=== PATIENT | female | born 1935 | race Caucasian/White ===

== ENCOUNTER → 2020-08-27 | Outpatient (CLI) | payer MEDICARE, OTHER ==
--- NOTE | 2020-08-27 15:32 | US ---
EXAM DESCRIPTION: Diagnostic Mammo,Bilateral (accession [id number]), Breast,Left (accession [id number]): Ultrasound CLINICAL HISTORY: 85 yearsFemaleLEFT BREAST LUMP . Lump located near the left axilla. No prior history of breast cancer. Mother with breast cancer at age 75. Menarche age 12. Childbirth age 22. Menopause age 52. No HRT. Lifetime risk of developing breast cancer (Tyrer-Cuzick model)(%): Not calculated COMPARISON: Baseline study at this facility. TECHNIQUE: Bilateral LM, CC, and MLO projection full-field images, digital tomosynthesis technique. Bilateral 2-D digital full-field images: LM, CC, and MLO projections. CAD available for 2-D images.. Transcutaneous scanning of the region of interest left breast utilizing bautista-scale and Doppler modes. Scanning performed by the finishing frame runner and Dr. Cha. Unable to visualize right pectoral muscle in the MLO projection, due to physical status of right shoulder. FINDINGS: The breast parenchymal density pattern is: Scattered areas of fibroglandular density. No skin thickening or nipple retraction ill-defined mass with spiculated margins in the lateral posterior left breast approximately 11 cm from the nipple at the 3:00 position near the pectoral muscle. This correlates with triangular skin marker were masses palpable. Spiculations extend almost to the lateral skin, and no mass is denser than the surrounding fibroglandular tissues. Mass measures approximately 1.8 x 1.3 cm in the sagittal plane and 1.8 cm transverse axis. 2 small linear calcifications anterior to the mass. Oval and round shape nodules most likely lymph nodes less than 1 cm diameter are seen in the nearby axilla. Bilateral solitary calcifications. Skin calcifications. Skin mole markers bilaterally. No focal, stellate mass or density, focal asymmetry , and no suspicious microcalcifications right breast. Ultrasound: Scanning at the 3:00 segment of the left breast 10 cm from the nipple. Hypoechoic mass predominantly with ill-defined borders and spiculations and partial halo with echogenic tissue. Predominantly posterior acoustic shadowing. Parallel orientation. Trace vascular by color Doppler. Dimensions are approximately 2.4 x 2.2 cm. No cyst, no fluid collection, no large calcifications. IMPRESSION: BI-RADS CATEGORY 4: SUSPICIOUS. SUB-CATEGORY 4C - HIGH SUSPICION FOR MALIGNANCY. RECOMMENDATION: Surgical consultation and tissue diagnosis should be considered. The FINDINGS and follow-up plan were reviewed in person with the patient following the examination. Written communication explaining the results and follow-up will be mailed to the patient and referring care provider. CRITICAL COMMUNICATION: The critical value was communicated directly by Dr. Cha via phone call, with Dr. Gregg Goode, at approximately 1440 hours, on August 27, 2020. Electronically signed by: Gregg Cha MD 08/27/2020 3:30 PM CDT
== END ==
LOC: US 13:08
PROVIDERS: ATTEND Family Medicine
DX: N63.32 Unspecified lump in axillary tail of the left breast (principal); Z80.3 Family history of malignant neoplasm of breast

== ENCOUNTER 2020-11-14 05:10 | Day surgery (SDC) | payer MEDICARE, OTHER ==
--- NOTE | 2020-11-05 11:02 | RAD ---
EXAM DESCRIPTION: Chest,2 Views CLINICAL HISTORY: 85 years Female, preop COMPARISON: None. FINDINGS: 2 views/radiographs Heart size and pulmonary vessels are within normal limits. There is no pneumothorax or pleural effusion. The lungs are clear bilaterally. The soft tissues are unremarkable. No acute osseous findings. IMPRESSION: No acute cardiopulmonary abnormality. Electronically signed by: Yuri Linton MD 11/05/2020 11:01 AM [facility]
[2020-11-14] MEDS ORDERED: LACTATED RINGERS 1,000 ML ONE (06:42)
[2020-11-14] MEDS ORDERED: LIDOCAINE 1% 10 ML VIAL INJ ONE (07:00)
[2020-11-14] MEDS ORDERED: DEXAMETHASONE INJ 10 MG/ML VIAL ONE (07:00)
[2020-11-14] MEDS ORDERED: diphenhydrAMINE HCL 50 MG/ML VIAL ONE (07:00)
[2020-11-14] MEDS ORDERED: ceFAZolin SODIUM 1 GM VIAL ONE (07:00)
[2020-11-14] MEDS ORDERED: PROPOFOL 200 MG/20 ML VIAL IV ONE (07:00)
[2020-11-14] MEDS ORDERED: LACTATED RINGERS 1,000 ML IVS ONE (08:45)
[2020-11-14] MEDS ORDERED: fentaNYL CITRATE INJ 50 MCG/ML 2 ML AMP ONE (09:57)
[2020-11-14] MEDS ORDERED: FAMOTIDINE INJ 10 MG/ML VIAL IV ONE (09:58)
[2020-11-14] MEDS ORDERED: BUPIVACAINE 0.25% W/EPI 50 ML VIAL INJ ONE (10:01)
[2020-11-14] MEDS ORDERED: LACTATED RINGERS 400 ML IVS ONE (11:23)
[2020-11-14 12:55] VITALS: BP 176/84; TEMP 97.4; O2SAT 96
--- NOTE | 2020-11-14 13:15 | OP ---
DATE OF PROCEDURE: 11/14/20 PREOPERATIVE DIAGNOSIS: 1. Left breast cancer. POSTOPERATIVE DIAGNOSIS: 1. Left breast cancer. PROCEDURE: 1. Left breast wide local excision with sentinel node biopsy. SURGEON: Errol Montague MD. ANESTHESIA: General. FINDINGS: The mass was probably about 3 cm with another mass next to it, about 1.5 cm. It was non-fixed, but going down to the muscle, so the deep margin will be negative as we took if off the muscle with no evidence of direct invasion. A single node with 21,000 count was identified in the axilla. No other axilla were seen with GPS, nor palpated. There was some trace up in the higher level node underneath the pectoralis muscle, which we did not excise during the sentinel node process with no evidence that it was necessarily positive. COMPLICATIONS: None. ESTIMATED BLOOD LOSS: Minimal. PLAN: Discharge. 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 She has seen Oncology who recommended a mastectomy. She does not want radiation or chemotherapy and would prefer a lumpectomy over mastectomy. I explained to her the recurrence rate without treatment is still relatively low. She understands and has refused mastectomy, so we agreed on a lumpectomy with sentinel node to remove the cancer we could. PROCEDURE: She was brought to the Operating Suite in supine position. General anesthesia was induced. She was prepped and draped in sterile fashion. The GPS was used to to identify where the sentinel node would be. That was readily done. We also noticed a little bit of dimpling in the skin although the tumor did not appear to be fixed to the skin. I did take an ellipse. We went down and with the self-retainers and Crowder retractors, we went around the tumor and excised it completely and, again, deeply. We took it off the muscle itself to ensure there was no deep margin as it was quite close. There was also another small nodule right next to it that did not take up any radiotracer, but could be a lymph node. After the mass was removed, we examined the breast and noticed no palpable nodes, but we did pepper picker one node that was 21,000, background was less than 10% and another pickup that we got was very high under the pectoralis major muscle, level 4 node that I could not palpate and we were not going to go after it way up there. Everything went well. We did use a LigaSure for some time to control any bleeding and also get the node out. She tolerated the procedure. The area was irrigated. Hemostasis was confirmed. It was closed with 4-0 Monocryl. She tolerated the procedure and was taken to Recovery to be discharged. #[id number] MTDD
--- NOTE | 2020-11-14 14:57 | NM ---
EXAM DESCRIPTION: Lymphatics Lymph Nodes CLINICAL HISTORY: sentinel node l LEFT breast tumor COMPARISON: Ultrasound-guided core biopsy left breast mass September 2020. TECHNIQUE: Procedure was performed by Dr. Cha. Patient supine on scanning table, in the nuclear medicine suite. Skin surrounding left breast nipple cleaned with alcohol. Approximately 50% of the Tc 99M sulfur colloid was injected in 2 equal amounts intradermally at the 10:00 and 2:00 positions of the nipple edge. A total dose of 0.5 mCi of radiopharmaceutical was injected. Standard precautions for handling the radiopharmaceutical were employed. The patient tolerated the procedure with no immediate complications. No imaging was performed. IMPRESSION: Successful, left periareolar injection of technetium 99m sulfur colloid intradermally, performed by the radiologist, for left sentinel node localization. Localization of left sentinel nodes with detector to be performed in the surgery suite. Electronically signed by: Gregg Cha MD 11/14/2020 2:56 PM [facility]
== END 2020-11-14 12:45 | disposition home or self-care (01) ==
LOC: AMB 05:10
PROVIDERS: ATTEND Surgery
DX: C50.912 Malignant neoplasm of unspecified site of left female breast (principal); I11.0 Hypertensive heart disease with heart failure; I50.9 Heart failure, unspecified; F32.9 Major depressive disorder, single episode, unspecified; E03.9 Hypothyroidism, unspecified; Z86.73 Personal history of transient ischemic attack (TIA), and cerebral infarction without residual deficits; Z88.5 Allergy status to narcotic agent; Z79.01 Long term (current) use of anticoagulants; Z79.899 Other long term (current) drug therapy
CPT/HCPCS: 00400; 19301; 36415; 38500; 71046; 78195; 80048; 85025; 88305; 88307; 88360; J0690; J1100; J1200; J3010; J3490; J7120